=== PATIENT | male | born 1930 | race Two or more races ===

== ENCOUNTER 2016-04-10 21:07 | Emergency (ER) | payer MEDICARE, OTHER ==
[~2016-04-10] VITALS: Ht 170.2 cm; Wt 74.8 kg
[2016-04-10] MEDS ORDERED: ASPI-991 PO (21:23)
[2016-04-10] MEDS ORDERED: TOPI50TA PO (21:23)
[2016-04-10] MEDS ORDERED: VIT1TABL46 PO (21:23)
[2016-04-10] MEDS ORDERED: SOLI10TA PO (21:23)
[2016-04-10] MEDS ORDERED: DOCU-25 PO (21:23)
[2016-04-10] MEDS ORDERED: DUTA0.5C PO (21:23)
[2016-04-10] MEDS ORDERED: CLOP75TA2 PO (21:23)
[2016-04-10] MEDS ORDERED: SIMV40TA2 PO (21:23)
[2016-04-10] MEDS ORDERED: CRAN3875 PO (21:23)
[2016-04-10] MEDS ORDERED: PANT40TA2 PO (21:23)
[2016-04-10] MEDS ORDERED: FURO-144 PO (21:23)
[2016-04-10] MEDS ORDERED: CARV3.12 PO (21:23)
[2016-04-10 22:49] LABS: BASOPHILS % (AUTO) 0.2 % (0.0-2.0); DIFF TOTAL % 100 %; EOSINOPHILS # (AUTO) 0.2 /CMM (0.0-0.7); EOSINOPHILS % (AUTO) 1.8 % (0.0-6.0); HEMATOCRIT 31 % (39-51); HEMOGLOBIN 9.5 g/dL (13.5-17.5); LYMPHOCYTES # (AUTO) 2.1 /CMM (0.8-4.8); LYMPHOCYTES % (AUTO) 16.9 % (20.0-44.0); MEAN CORPUSCULAR HEMOGLOBIN 27 PG (26.0-33.0); MEAN CORPUSCULAR HGB CONC 31 g/dl (31.0-36.0); MEAN CORPUSCULAR VOLUME 87 fL (80-96); MONOCYTES % (AUTO) 7.8 % (2.0-12.0); NEUTROPHILS % (AUTO) 73.3 % (43.0-81.0); PLATELET COUNT (AUTO) 180 /CMM (150-450); RED BLOOD CELL COUNT(AUTO) 3.51 MIL/uL (4.5-6.0); WHITE BLOOD COUNT (AUTO) 12.3 K/uL (4.3-11.0)
[2016-04-10 23:31] LABS: EOSINOPHILS % (MANUAL) 1 % (0-4); LYMPHOCYTES % (MANUAL) 16 % (16-48); PLATELET ESTIMATE ADEQUATE
[2016-04-11 01:48] VITALS: BP 142/73
== END 2016-04-11 00:45 | disposition home or self-care (01) ==
LOC: ER 21:09
DX: Z49.01 Encounter for fitting and adjustment of extracorporeal dialysis catheter (principal); G93.40 Encephalopathy, unspecified; E11.9 Type 2 diabetes mellitus without complications; I25.10 Atherosclerotic heart disease of native coronary artery without angina pectoris; I12.9 Hypertensive chronic kidney disease with stage 1 through stage 4 chronic kidney disease, or unspecified chronic kidney disease; E78.5 Hyperlipidemia, unspecified; Z86.73 Personal history of transient ischemic attack (TIA), and cerebral infarction without residual deficits; Z79.82 Long term (current) use of aspirin
CPT/HCPCS: 36415; 71010; 85025; 99285; A4606; Z7610

== ENCOUNTER 2016-06-20 12:21 | Inpatient (IN) | payer MEDICARE, OTHER ==
[~2016-06-20] VITALS: Ht 167.6 cm; Wt 60.3 kg
[~2016-06-20 12:21] MED LIST: ASPI-991 PO; CARV3.12 PO; CLOP75TA2 PO; CRAN3875 PO; DOCU-25 PO; DUTA0.5C PO; FURO-144 PO; PANT40TA2 PO; SIMV40TA2 PO; SOLI10TA PO; TOPI50TA PO; VIT1TABL46 PO
--- NOTE | 2016-06-20 12:22 | NUR ---
BIBRA 102 FROM [facility] FOR MORE ALTERED THAN USUAL, LAST KNOWN WELL WAS YESTERDAY. PATIENT RECEIVED IN MILD DISTRESS, SATING 85-93% ON ROOM AIR. PATIENT IS RESPONSE TO PAIN. SKIN IS WARM TO TOUCH AND NON DIAPHORETIC. NOTED AFEBRILE. GOWNED AND PLACED PT ON TELE MONITOR. RAY AT BEDSIDE FOR EVAL, IV INSERTED BY ON RIGHT EJ.
--- NOTE | 2016-06-20 12:23 | NUR ---
PLACED PT ON SIMPLE MASK AT 5LPM WITH NOTED HELP
--- NOTE | 2016-06-20 12:52 | NUR ---
patient was taken to ct
[2016-06-20 12:53] LABS: BASOPHILS % (AUTO) 0.4 % (0.0-2.0); EOSINOPHILS # (AUTO) 0.3 /CMM (0.0-0.7); EOSINOPHILS % (AUTO) 2.5 % (0.0-6.0); HEMATOCRIT 32 % (39-51); HEMOGLOBIN 10.3 g/dL (13.5-17.5); LYMPHOCYTES # (AUTO) 1.5 /CMM (0.8-4.8); LYMPHOCYTES % (AUTO) 13.1 % (20.0-44.0); MEAN CORPUSCULAR HEMOGLOBIN 29 PG (26.0-33.0); MEAN CORPUSCULAR HGB CONC 32 g/dl (31.0-36.0); MEAN CORPUSCULAR VOLUME 90 fL (80-96); MONOCYTES # (AUTO) 0.7 /CMM (0.1-1.30); MONOCYTES % (AUTO) 6.2 % (2.0-12.0); NEUTROPHILS # (AUTO) 8.7 /CMM (1.8-8.9); NEUTROPHILS % (AUTO) 77.8 % (43.0-81.0); PLATELET COUNT (AUTO) 181 /CMM (150-450); RDW COEFFICIENT OF VARIATION 17.4 (11.5-15.0); RED BLOOD CELL COUNT(AUTO) 3.56 MIL/uL (4.5-6.0); WHITE BLOOD COUNT (AUTO) 11.2 K/uL (4.3-11.0)
--- NOTE | 2016-06-20 12:58 | NUR ---
CALLED PHARMACY FOR LYNN
--- NOTE | 2016-06-20 12:59 | NUR ---
PT STILL ON CT
[2016-06-20] MEDS ORDERED: VANCOMYCIN 1 GM in IV D5W 250 ML IV ONE (13:00)
[2016-06-20] MEDS ORDERED: PIPERACILLIN /TAZOBACTAM 3.375 G in IV D5W 50 ML IV ONE (13:00)
[2016-06-20 13:02] LABS: CALCIUM, SERUM 8.1 mg/dL (8.5-10.1); CREATININE 2.1 mg/dL (0.6-1.3); POTASSIUM 4.7 mmol/L (3.5-5.1)
[2016-06-20 13:05] LABS: INR 1.22 (0.87-1.13); PROTHROMBIN TIME 12.8 SECS (9.5-12.7)
[2016-06-20] MEDS ORDERED: IV SET PRIMARY PUMP SET 1 EA INFUS.SET MC ONE (13:05)
[2016-06-20 13:08] LABS: ALBUMIN 2.7 g/dL (3.4-5.0); BILIRUBIN,DIRECT 0.4 mg/dL (0.0-0.2); BILIRUBIN,TOTAL 0.7 mg/dL (0.2-1.0); TOTAL PROTEIN, SERUM 6.3 g/dL (6.4-8.2)
[2016-06-20 13:11] LABS: TROPONIN I 0.251 ng/mL (0.00-0.056)
[2016-06-20 13:51] LABS: LACTIC ACID 0.8 mmol/L (0.4-2.0)
--- NOTE | 2016-06-20 13:56 | NUR ---
CALLED NURSING CAR LOT ATTENDANT BEAU FOR TELEMETRY BED
--- NOTE | 2016-06-20 14:06 | NUR ---
REPORT GIVEN TO CARIN SPAULDING FOR [facility] TELE [phone]
[2016-06-20] MEDS ORDERED: BISA-79 PO (14:19)
[2016-06-20] MEDS ORDERED: MEGE400O PO (14:19)
[2016-06-20] MEDS ORDERED: LACT1TAB20 PO (14:19)
[2016-06-20] MEDS ORDERED: MULT1TAB11 PO (14:19)
[2016-06-20] MEDS ORDERED: ZINC220T PO (14:19)
[2016-06-20] MEDS ORDERED: CRAN425C PO (14:19)
[2016-06-20] MEDS ORDERED: ACET-868 PO (14:19)
[2016-06-20] MEDS ORDERED: AMIN30LI2 PO (14:19)
[2016-06-20 14:45] VITALS: BP 119/64
--- NOTE | 2016-06-20 14:58 | NUR ---
SWITCHMAN OPENING RECEIVED PATIENT NON VERBAL WILL NOT OPEN EYES TO PAINFUL STIMULI. VS STABLE. ROOM AIR 88% PLACED PATIENT ON 2LPM NASAL CANNULA AND NOW SATTING 94%. FAMILY AT BEDSIDE. MD AWARE OF ADMISSION. PATIENT TELE APPLIED. PATIENT CAME UP WITH BILATERAL RESTRAINTS. REMOVED AND PATIENT GOES DIRECTLY TO PULL AT IV LINES AND NASAL CANNULA; WILL CALL MD TO ASK FOR SITTER ORDER. URINE SAMPLE IS NEEDED OK FROM MD SPAULDING TO STRAIGHT CATH PATIENT. RAILS UPX3 FOR SAFETY BED ALARM ON AND BED LOWERED AND LOCKED. NOTIFIED PATIENT NO FLUIDS FOR PATIENT HE CAN ASPIRATE
--- NOTE | 2016-06-20 15:00 | NUR ---
CAKE KNOCKER NOTES EDUCATED PATIENT FAMILY MEMBERS ON ASPIRATION PRECAUTIONS THEY CONTINUOUSLY STATE THAT PATIENT WANTS WATER. STATE UNDERSTANDING BUT CONTINUE TO ASK
[2016-06-20 16:00] VITALS: BP 113/46
--- NOTE | 2016-06-20 16:17 | NUR ---
LEARNING SUPPORT SERVICES DIRECTOR NOTES PATIENT FAMILY REFUSING AMMONIA LEVEL TO BE DRAWN OR ABG TO BE DRAWN. NOTIFIED MD YBARRA
[2016-06-20] MEDS ORDERED: ACETAMINOPHEN 325 MG TABLET PO PRN (16:30)
[2016-06-20] MEDS ORDERED: ONDANSETRON HCL/PF 4 MG/2 ML VIAL IVP PRN (16:30)
[2016-06-20] MEDS: MEGESTROL ACETATE SUSP 400 MG/10 ML UDC PO SCH (17:00)
[2016-06-20] MEDS: SIMVASTATIN 40 MG TABLET PO SCH (17:00)
[2016-06-20] MEDS: CARVEDILOL 3.125 MG TABLET PO SCH (17:00)
[2016-06-20] MEDS: OXYBUTYNIN CHLORIDE 5 MG TABLET PO SCH (17:00)
[2016-06-20 17:13] LABS: ABG BASE EXCESS 0.3 mmol/L; ABG OXYGEN SATURATION 96.2 % (92.0-98.5); ABG PCO2 37.1 mmHg (35.0-45.0); ABG PH 7.434 (7.350-7.450); ABG PO2 87.2 mmHg (75.0-100.0); ABG TOTAL HEMOGLOBIN 11.1 G/dL (13.5-18.0); AaDO2 97.6 mmHg; COHb 1.5 % (0.5-1.5); MetHb 0.5 % (0.0-1.5); O2Hb 94.3 % (94.0-97.0); SITE, ABG Right Radial; VENT MODE, BG NASAL CANNULA
--- NOTE | 2016-06-20 17:17 | NUR ---
COSTUME MISTRESS NOTES PER TATE SPAULDING KEEP PATIENT NPO AND HOLD PO MEDICATIONS UNTIL HE IS ALERT AND ABLE TO SAFELY SWALLOW. HD RN BILL AT BEDSIDE FOR DIALYSIS PER DR WESTBROOK
[2016-06-20] MEDS: CHLORHEXIDINE GLUCONATE 15 ML UDC MM SCH (18:13)
--- NOTE | 2016-06-20 18:42 | NUR ---
PLASTERING SUPERVISOR CLOSING PATIENT STABLE NO COMPLICATIONS. STABLE ON 2LPM NC 92-95%. PATIENT FAMILY MEMBER AT BEDSIDE. PATIENT MORE ALERT ASKING FOR WATER AND OPENING EYES. PATIENT BED BATH COMPLETED AND SAT UP FOR ASPIRATION. CURRENTLY RUNNING HD VS STABLE. SITTER AT SIDE NO COMPLICATIONS. FAMILY RE EDUCATED ON ASPIRATION PRECAUTIONS AND NPO STATUS AGAIN. RAILS UPX3 FOR SAFETY, BED ALARM ON, BED LOWERED AND LOCKED. WILL ENDORSE CARE TO RN AT THIS TIME.
--- NOTE | 2016-06-20 19:25 | NUR ---
TELE/RN NOTES RECEIVED PT. LYING IN BED RESTING. PT. IS RESPONSIVE TO VERBAL AND TACTILE STIMULI. BREATHING EVEN AND UNLABORED ON 2LPM O2 VIA NC. NO SOB, RESPIRATORY DISTRESS OR S/S OF PAIN NOTED AT THIS TIME. PT. WITH RIGHT CHEST WALL PORTACATH PRESENT AND INTACT. PT. WITH RIGHT EJ 20 GAUGE SALINE LOCK PRESENT, PATENT AND INTACT. PT. IS CURRENTLY RECEIVING DIALYSIS AT BEDSIDE. PT. WITH FAMILY PRESENT AT BEDSIDE. BED IN LOWEST POSITION, CALL LIGHT WITHIN REACH, WILL CONTINUE TO MONITOR.
--- NOTE | 2016-06-20 21:30 | NUR ---
TELE/RN NOTES NOTIFIED MD GONZALEZ PT. AMMONIA LEVEL RESULTED = 48. PER MD GONZALEZ NEW ORDERS: LACTULOSE 30ML PO Q6HR, REPEAT AMMONIA LEVEL IN THE MORNING AND LIVER ULTRASOUND. WILL CARRY OUT ORDERS. WILL CONTINUE TO MONITOR.
--- NOTE | 2016-06-20 22:30 | NUR ---
MS/RN NOTES PT. IS MORE ALERT OPENING EYES AND TALKING. CHARGE NURSE IQRA IS CONVERSING IN [facility] WITH THE PT. AND PT. IS UNDERSTANDING AND COMMUNICATING. PT. REQUESTING WATER. TWO RN'S ASSESSED PT. ABILITY TO SWALLOW. PT. ABLE TO TOLERATE WATER WITH THICKENER. NO COUGHING OR PROBLEM SWALLOWING NOTED. WILL CONTINUE TO MONITOR.
[2016-06-20 23:17] LABS: APPEARANCE,URINE SL CLOUDY (CLEAR); BILIRUBIN,URINE NEGATIVE (NEGATIVE); BLOOD, URINE 2+ Ery/uL (NEGATIVE); COLOR,URINE YELLOW (YELLOW); KETONES,URINE NEGATIVE (NEGATIVE); LEUKOCYTE ESTERASE ,URINE TRACE (NEGATIVE); NITRITE, URINE NEGATIVE (NEGATIVE); PROTEIN,URINE TRACE mg/dl (NEGATIVE); UGLUCOSE NEGATIVE (NEGATIVE); UROBILINOGEN,URINE 0.2 EU/dL (0.2)
[2016-06-20] MEDS ORDERED: LACTULOSE 10 G/15 ML UDC (PYXIS) ONE (23:21)
[2016-06-20] MEDS: LACTULOSE 10 G/15 ML UDC (PYXIS) PO SCH (23:28)
--- NOTE | 2016-06-20 23:30 | NUR ---
TELE/RN NOTES PT. SITTING UP IN IN HIGH FOWLERS, PT. AWAKE, ALERT TO SELF, CONVERSING IN FARSI. ADMINISTERED TO PT. LACTULOSE 30ML PO ORDERED. ADDED THICKENER TO THE LACTULOSE. PT. TOLERATED MEDICATION WELL. NO COUGHING OR TROUBLE SWALLOWING NOTED. WILL CONTINUE TO MONITOR.
[2016-06-20 23:34] LABS: ADD URINE CULTURE NO; BACTERIA,URINE Rare /HPF (None Seen); SQUAMOUS EPITHELIAL CELL,UR Rare /HPF (None Seen); URINE AMORPHOUS URATE Moderate /HPF (None Seen); WBC,URINE 0-2 /HPF (0-3)
--- NOTE | 2016-06-20 23:58 | NUR ---
TELE/RN NOTES INFORMED MD GONZALEZ PT. 3RD TROPONIN RESULTED AT 0.215, IT IS DECREASED COMPARED TO INITIAL TROPONIN OF 0.251 (2ND = 0.202) PT. IS CURRENTLY SINUS RHYTHM HR 83. NO COMPLAINTS OF CHEST PAIN OR SOB NOTED AT THIS TIME. PER MD GONZALEZ OK, NO NEW ORDERS AT THIS TIME. WILL CONTINUE TO MONITOR.
[2016-06-21] VITALS: BP 120/49
[2016-06-21 04:00] VITALS: BP 130/60
[2016-06-21] MEDS ORDERED: LACTULOSE 10 G/15 ML UDC (PYXIS) ONE (05:18)
[2016-06-21] MEDS: LACTULOSE 10 G/15 ML UDC (PYXIS) PO SCH ×3 (05:51→17:31)
--- NOTE | 2016-06-21 06:32 | NUR ---
TELE/RN NOTES PT. LYING IN BED RESTING. BREATHING EVEN AND UNLABORED ON 2LPM O2 VIA NC. NO SOB, RESPIRATORY DISTRESS OR S/S OF PAIN NOTED AT THIS TIME AND THROUGHOUT SHIFT. PT. WITH RIGHT CHEST WALL PORTACATH PRESENT AND INTACT. PT. WITH RIGHT WRIST 24 GAUGE IV SALINE LOCK, PRESENT, PATENT AND INTACT. PT. WITH SITTER PRESENT AT BEDSIDE. ALL PT. NEEDS MET. PT. OFFLOADED. TURNED AND REPOSITIONED Q2H AND NEEDED. BED IN LOWEST POSITION, CALL LIGHT WITHIN REACH, WILL ENDORSE TO [facility] NURSE FOR CONTINUITY OF CARE. Addendum: 06/21/16 at 0634 by JORGE GUEVARA RN PT. WITH EXTERNAL MATERIAL CONTROL MANAGER PRESENT AND INTACT, CURRENT RHYTHM = SINUS RHYTHM HR 82.
[2016-06-21 07:20] VITALS: BP 113/46
--- NOTE | 2016-06-21 07:30 | NUR ---
AM RN NOTE Received patient awake lying in his bed. Verbally responsive. On O2 2L/min via NC. On tele monitor. 1:1 sitter at pt's side. IV site intact and patent. Bed in low locked position. Will continue to monitor.
[2016-06-21 08:00] VITALS: BP 116/53
[2016-06-21] MEDS: CHLORHEXIDINE GLUCONATE 15 ML UDC MM SCH ×2 (08:07→17:31)
[2016-06-21] MEDS: DUTASTERIDE (0.5 MG) 0.5 MG CAPSULE PO SCH (08:07)
[2016-06-21] MEDS: ASPIRIN EC 81 MG TABLET.DR PO SCH (08:07)
[2016-06-21] MEDS: CLOPIDOGREL BISULFATE 75 MG TABLET PO SCH (08:08)
[2016-06-21] MEDS: OXYBUTYNIN CHLORIDE 5 MG TABLET PO SCH ×2 (08:08→17:28)
[2016-06-21] MEDS: CARVEDILOL 3.125 MG TABLET PO SCH ×2 (08:08→17:29)
[2016-06-21] MEDS: MEGESTROL ACETATE SUSP 400 MG/10 ML UDC PO SCH ×2 (08:08→17:31)
[2016-06-21] MEDS: TOPIRAMATE 25 MG TABLET PO SCH (08:09)
[2016-06-21] MEDS: SIMVASTATIN 40 MG TABLET PO SCH ×2 (08:09→17:28)
--- NOTE | 2016-06-21 08:32 | NUR ---
WOUND CARE CONSULT: PT REFUSED SKIN ASSESSMENT. PT AGITATED AT THIS TIME. WILL SEE PT PT CONDITION PERMITS.
[2016-06-21 10:57] LABS: EOSINOPHILS # (AUTO) 0.1 /CMM (0.0-0.7); HEMATOCRIT 36 % (39-51); MONOCYTES # (AUTO) 0.6 /CMM (0.1-1.30)
[2016-06-21 10:58] LABS: BASOPHILS # (AUTO) 0.1 /CMM (0.0-0.2); BASOPHILS % (AUTO) 0.5 % (0.0-2.0); EOSINOPHILS % (AUTO) 1.1 % (0.0-6.0); HEMOGLOBIN 11.1 g/dL (13.5-17.5); LYMPHOCYTES # (AUTO) 1.1 /CMM (0.8-4.8); LYMPHOCYTES % (AUTO) 11.5 % (20.0-44.0); MEAN CORPUSCULAR HEMOGLOBIN 28 PG (26.0-33.0); MEAN CORPUSCULAR HGB CONC 31 g/dl (31.0-36.0); MEAN CORPUSCULAR VOLUME 91 fL (80-96); MONOCYTES % (AUTO) 6.5 % (2.0-12.0); NEUTROPHILS # (AUTO) 7.6 /CMM (1.8-8.9); NEUTROPHILS % (AUTO) 80.4 % (43.0-81.0); PLATELET COUNT (AUTO) 176 /CMM (150-450); RDW COEFFICIENT OF VARIATION 18.3 (11.5-15.0); RED BLOOD CELL COUNT(AUTO) 3.98 MIL/uL (4.5-6.0); WHITE BLOOD COUNT (AUTO) 9.5 K/uL (4.3-11.0)
--- NOTE | 2016-06-21 12:21 | NUR ---
AM RN NOTE Lactulose held due to dialysis
[2016-06-21 13:42] LABS: ALANINE AMINOTRANSFERASE 16 U/L (12-78); ALBUMIN 2.7 g/dL (3.4-5.0); ALKALINE PHOSPHATASE 102 U/L (46-116); ASPARTATE AMINOTRANSFERASE 14 U/L (15-37); BILIRUBIN,TOTAL 0.8 mg/dL (0.2-1.0); CALCIUM, SERUM 8.1 mg/dL (8.5-10.1); CARBON DIOXIDE 28 mmol/L (21-32); CHLORIDE 110 mmol/L (98-107); CREATININE 1.6 mg/dL (0.6-1.3); GLUCOSE 168 mg/dL (74-106); MAGNESIUM 2.2 mg/dL (1.8-2.4); PHOSPHORUS 3.4 mg/dL (2.5-4.9); POTASSIUM 4.1 mmol/L (3.5-5.1); SODIUM SERUM 148 mmol/L (136-145); TOTAL PROTEIN, SERUM 6.4 g/dL (6.4-8.2); UREA NITROGEN, BLOOD 37 mg/dL (7-18)
[2016-06-21 13:46] LABS: CHOLESTEROL 114 mg/dL (<200); HDL CHOLESTEROL 26 mg/dL (40-60); LDL 75 mg/dL (0-99); TRIGLYCERIDES 77 mg/dL (30-150)
[2016-06-21 14:12] LABS: THYROID STIMULATING HORMONE < 0.007 uIU/mL (0.358-3.74)
[2016-06-21 16:00] VITALS: BP 116/55
--- NOTE | 2016-06-21 16:00 | NUR ---
AM RN NOTE Dialysis output 1.8 L.
--- NOTE | 2016-06-21 16:00 | NUR ---
AM RN NOTE Ammonia lab results notified to Dr. Edgar Santos, continue lactulose as ordered per MD.
--- NOTE | 2016-06-21 19:04 | NUR ---
AM RN NOTE Patient lying in his bed, family at bedside. No acute distress noted. IV site intact and patent. Will endorse to next shift for JAYSON.
--- NOTE | 2016-06-21 19:49 | NUR ---
AVIATION TECHNICAL SYSTEMS SPECIALIST INITIAL NOTES RECEIVED REPORT FROM AM NURSE , CHECKED PT ,HE'S SLEEPING AT THIS TIME BUT AROUSABLE TO TOUCH, RESPIRATION EVEN AND UN-LABORED , NOT IN ANY ACUTE DISTRESS NOTED. SKIN WARM TO TOUCH NOTICED SOME BRUISES , HEPLOCK ON HIS RIGHT WRIST PATENT AND INTACT SECURED WITH KERLIX..PT ALSO WITH 02 AT 3LITERS VIA NASAL CANULA 100 % SATURATION .KEPT HIM WARM AND COMFORTABLE AT ALL TIMES. WILL CONTINUE CLOSELY MONITORING FOR SAFETY.
[2016-06-21 19:57] VITALS: BP 104/56
[2016-06-22] MEDS: LACTULOSE 10 G/15 ML UDC (PYXIS) PO SCH ×5 (00:06→18:48)
[2016-06-22] MEDS: Z GUARD REMEDY 2 OZ OINT TP PRN ×2 (00:06→06:04)
--- NOTE | 2016-06-22 00:59 | NUR ---
clinical trainer notes routine med given and pt tolerated well. no aspiration noted.reposition him for comfort. kept him warm and comfortable at all times.will continue to monitor.
--- NOTE | 2016-06-22 02:54 | NUR ---
rate quoting operator/notes patient woke up noticed more alert and asking for drink ,gave ensure and he tolerated well,no aspiration noted.kept him comfortable at all times. will continue to monitor.
--- NOTE | 2016-06-22 07:00 | NUR ---
LUNCH TRUCK DRIVER CLOSING NOTES MORNING CARE DONE WELL SKIN TREATMENT. PT AWAKE AND CONFUSION NOTED.RE-ORIENT HIM WHERE HE AT . ALL DUE MEDS GIVEN AND ALL NEEDS MET .NO SIGNS OF ANY ACUTE DISTRESS NOTED.STABLE RASHAAD THE NIGHT.KEPT HIM WARM AND COMFORTABLE AT ALL TIMES.PLACE CALL LIGHT AT REACH.SITTER AT THE BEDSIDE FOR SAFETY.
[2016-06-22 07:35] LABS: BASOPHILS % (AUTO) 0.4 % (0.0-2.0); EOSINOPHILS # (AUTO) 0.4 /CMM (0.0-0.7); HEMATOCRIT 36 % (39-51); HEMOGLOBIN 10.9 g/dL (13.5-17.5); LYMPHOCYTES # (AUTO) 1.1 /CMM (0.8-4.8); LYMPHOCYTES % (AUTO) 9.5 % (20.0-44.0); MEAN CORPUSCULAR HEMOGLOBIN 28 PG (26.0-33.0); MEAN CORPUSCULAR HGB CONC 31 g/dl (31.0-36.0); MEAN CORPUSCULAR VOLUME 92 fL (80-96); MONOCYTES # (AUTO) 0.7 /CMM (0.1-1.30); MONOCYTES % (AUTO) 6.4 % (2.0-12.0); NEUTROPHILS # (AUTO) 8.9 /CMM (1.8-8.9); NEUTROPHILS % (AUTO) 79.7 % (43.0-81.0); PLATELET COUNT (AUTO) 175 /CMM (150-450); RDW COEFFICIENT OF VARIATION 18.8 (11.5-15.0); RED BLOOD CELL COUNT(AUTO) 3.87 MIL/uL (4.5-6.0); WHITE BLOOD COUNT (AUTO) 11.1 K/uL (4.3-11.0)
[2016-06-22 07:41] VITALS: BP 110/53
[2016-06-22 08:00] VITALS: BP 110/53
--- NOTE | 2016-06-22 08:07 | NUR ---
MS/RN OPENING NOTE PT. IS WITH A 1:1 SITTER NEAR BEDSIDE. PT. IS LYING IN BED A&OX1-2. NO SOB, NO SIGNS OF DISTRESS, AND BREATHING IS UNLABORED. PT. HAS A RIGHT WRIST IV SITE. PT. HAD DIALYSIS 06/21/16. BED IN LOW POSITION, 2 SIDE RAILS UP, AND CALL LIGHT WITHIN REACH. WILL CONTINUE TO MONITOR PT.
[2016-06-22 08:16] LABS: ALBUMIN 2.6 g/dL (3.4-5.0); BILIRUBIN,TOTAL 0.7 mg/dL (0.2-1.0); CALCIUM, SERUM 8.1 mg/dL (8.5-10.1); CREATININE 1.9 mg/dL (0.6-1.3); MAGNESIUM 2.2 mg/dL (1.8-2.4); PHOSPHORUS 2.9 mg/dL (2.5-4.9); POTASSIUM 4.2 mmol/L (3.5-5.1); TOTAL PROTEIN, SERUM 6.6 g/dL (6.4-8.2)
[2016-06-22] MEDS: OXYBUTYNIN CHLORIDE 5 MG TABLET PO SCH ×3 (09:35→18:47)
[2016-06-22] MEDS: DUTASTERIDE (0.5 MG) 0.5 MG CAPSULE PO SCH (09:35)
[2016-06-22] MEDS: CHLORHEXIDINE GLUCONATE 15 ML UDC MM SCH ×3 (09:35→18:48)
[2016-06-22] MEDS: ASPIRIN EC 81 MG TABLET.DR PO SCH (09:36)
[2016-06-22] MEDS: SIMVASTATIN 40 MG TABLET PO SCH ×3 (09:36→18:46)
[2016-06-22] MEDS: CARVEDILOL 3.125 MG TABLET PO SCH ×3 (09:36→18:47)
[2016-06-22] MEDS: TOPIRAMATE 25 MG TABLET PO SCH (09:36)
[2016-06-22] MEDS: CLOPIDOGREL BISULFATE 75 MG TABLET PO SCH (09:37)
--- NOTE | 2016-06-22 09:46 | NUR ---
WOUND CARE CONSULT: PT PRESENTS WITH POSTERIOR SCALP WOUND, PRESENT ON ADMISSION. PT IS INCONTINENT. PT ABLE TO ASSIST WITH TURNING AND REPOSITIONING IN BED BUT IS AGITATED AT TIMES. PT ON COMFORT GEL MATTRESS. SAIMA SCORE IS 13. ALL SKIN PROTECTION MEASURES DISCUSSED WITH NURSING STAFF. MD IN AGREEMENT WITH PLAN OF CARE. Addendum: 06/22/16 at 0949 by LILLIE ZHONG WNDNU Amended: Links added.
[2016-06-22] MEDS: MEGESTROL ACETATE SUSP 400 MG/10 ML UDC PO SCH ×2 (10:49→18:38)
[2016-06-22] MEDS: NEOMY SULF/BACITRAC ZN/POLY 15 GM TUBE TP SCH ×2 (14:44→18:41)
[2016-06-22 15:51] VITALS: BP 109/45
[2016-06-22 16:00] VITALS: BP 125/66
--- NOTE | 2016-06-22 18:00 | NUR ---
MS/RN REFUSED MEDICATIONS PT. REFUSED 1700 MEDICATIONS, INCLUDING COREG, MEGACE, ZOCOR, LACTULOSE, LACTULOSE, MOUTH WASH, AND DITROPAN. PT. WAS GIVEN REASON FOR TAKING MEDICATIONS AND ENCOURAGED TO TAKE WITH PUREED APPLESAUCE.
--- NOTE | 2016-06-22 19:05 | NUR ---
MS RN NOTES: RECEIVED PT IN BED A/O X1-2 (FARSI SPEAKING ONLY) WITH FAMILY AT BEDSIDE. NO SIGNS OR SYMPTOMS OF DISTRESS NOTED AT THIS TIME. EXPLAINED TO FAMILY THAT HE IS TO GO FOR A PROCEDURE TOMORROW: US GUIDED BIOPSY THYROID. HANDED A PRINTOUT TO FAMILY ABOUT PROCEDURE BUT BOTH SON AND REFUSED TO SIGN THE CONSENT. PT HAS A SITTER AT BEDSIDE WELL. KEPT CLEAN, DRY, AND COMFORTABLE. PT HAS A R CHEST WALL-HD CATH AND IS IN PLACE WITH IV GUARD. PT ALSO HAS IV ON R WRIST #24 AND IS PATENT AND INTACT. PT IS ALSO SCHEDULED FOR HD TOMORROW. BED KEPT IN LOCKED, LOWEST POSITION, AND SIDE RAILS X2 UP. WILL CONTINUE TO MONITOR PT.
--- NOTE | 2016-06-22 19:30 | NUR ---
MS/RN CLOSING NOTE 1:1 SITTER NEAR BEDSIDE. PT. IS IN BED, WITH HEAD OF BED ELEVATED, AWAKE, A&OX1-2 FARSI SPEAKING. NO S/S OF DISTRESS, NO SOB, BREATHING EVENLY, UNLABORED WITHOUT NASAL CANULA SPO2 96%. PT. IS IN STABLE CONDITION. PT. IS SCHEDULED FOR HEMODIALYSIS 06/23/16, AND ULTRASOUND GUIDED BIOPSY OF THE THYROID, PT.'S FAMILY WAS NOTIFIED OF THE PROCEDURE. NO IV FLUIDS INFUSING IN RIGHT WRIST IV ACCESS. BED IS IN LOW POSITION, 2 SIDE RAILS UP, ALL NEEDS ATTENDED TO, AND WILL ENDORSE REPORT TO EARLY CHILDHOOD DIRECTOR NURSE.
[2016-06-22 20:00] VITALS: BP 109/50
[2016-06-23] MEDS: HYDROGEL DRESSING 90 GM TUBE TP PRN ×2 (06:05→13:53)
[2016-06-23] MEDS: LACTULOSE 10 G/15 ML UDC (PYXIS) PO SCH ×4 (06:05→23:40)
[2016-06-23] MEDS: Z GUARD REMEDY 2 OZ OINT TP PRN ×2 (06:06→13:53)
--- NOTE | 2016-06-23 07:40 | NUR ---
RECEIVED PT. CONFUSED YELLS OUT FROM TIME TO TIME.IN ROOM WITH ONE TO ONE SITTER.VS STABLE.AT THIS TIME FAMILY REFUSING US GUIDED BX OF THYROID.SIDE RAILS UP.
--- NOTE | 2016-06-23 07:53 | NUR ---
MS RN CLOSING NOTES: PT IS IN BED ASLEEP WITH SITTER AT BEDSIDE. PT IS A/O X1 WITH CONFUSION AND ONLY FARSI SPEAKING. PT IS INCONTINENT WITH DIAPER. PT DID HAVE SOME URINE ON THE PAD WHEN PT WAS GIVEN SPONGE BATH. PT HAD LITTLE BOWEL MOVEMENT X1. PT KEPT CLEAN, DRY, AND COMFORTABLE. PT HAS IV ON R WRIST #24G HL, SULLY FISTULA, AND RCW HD CATH. PT IS SCHEDULED FOR DIALYSIS TODAY. BED KEPT IN LOCKED, LOWEST POSITION, AND SIDE RAILS X2 UP. MAXIM LIGHT WITHIN PT'S REACH. ENDORSED TO DAY SHIFT NURSE FOR CONTINUITY OF CARE. INFORMED DAY SHIFT NURSE THAT SON (BROOKE) AND REFUSED TO SIGN THE CONSENT FOR US NEEDLE GUIDED BIOPSY THYROID PROCEDURE SCHEDULED TODAY.
[2016-06-23 08:34] VITALS: BP 104/53
[2016-06-23] MEDS ORDERED: CARVEDILOL 3.125 MG TABLET PO SCH (09:00)
[2016-06-23 09:12] LABS: BASOPHILS % (AUTO) 0.2 % (0.0-2.0); EOSINOPHILS # (AUTO) 0.4 /CMM (0.0-0.7); EOSINOPHILS % (AUTO) 3.9 % (0.0-6.0); HEMATOCRIT 34 % (39-51); HEMOGLOBIN 10.7 g/dL (13.5-17.5); LYMPHOCYTES # (AUTO) 1.5 /CMM (0.8-4.8); LYMPHOCYTES % (AUTO) 13.4 % (20.0-44.0); MEAN CORPUSCULAR HEMOGLOBIN 29 PG (26.0-33.0); MEAN CORPUSCULAR HGB CONC 32 g/dl (31.0-36.0); MEAN CORPUSCULAR VOLUME 90 fL (80-96); MONOCYTES # (AUTO) 0.6 /CMM (0.1-1.30); MONOCYTES % (AUTO) 5.5 % (2.0-12.0); NEUTROPHILS # (AUTO) 8.5 /CMM (1.8-8.9); PLATELET COUNT (AUTO) 171 /CMM (150-450); RDW COEFFICIENT OF VARIATION 17.9 (11.5-15.0); RED BLOOD CELL COUNT(AUTO) 3.76 MIL/uL (4.5-6.0); WHITE BLOOD COUNT (AUTO) 11.1 K/uL (4.3-11.0)
[2016-06-23 09:34] LABS: CALCIUM, SERUM 8.1 mg/dL (8.5-10.1); CREATININE 2.2 mg/dL (0.6-1.3); MAGNESIUM 2.3 mg/dL (1.8-2.4); PHOSPHORUS 2.9 mg/dL (2.5-4.9); POTASSIUM 4.7 mmol/L (3.5-5.1)
[2016-06-23] MEDS: CHLORHEXIDINE GLUCONATE 15 ML UDC MM SCH ×2 (09:49→18:20)
[2016-06-23] MEDS: MEGESTROL ACETATE SUSP 400 MG/10 ML UDC PO SCH ×2 (09:50→18:20)
[2016-06-23] MEDS: DUTASTERIDE (0.5 MG) 0.5 MG CAPSULE PO SCH (09:50)
[2016-06-23] MEDS: CLOPIDOGREL BISULFATE 75 MG TABLET PO SCH (09:50)
[2016-06-23] MEDS: OXYBUTYNIN CHLORIDE 5 MG TABLET PO SCH ×2 (09:50→18:20)
[2016-06-23] MEDS: ASPIRIN EC 81 MG TABLET.DR PO SCH (09:50)
[2016-06-23] MEDS: TOPIRAMATE 25 MG TABLET PO SCH (09:52)
[2016-06-23] MEDS: SIMVASTATIN 40 MG TABLET PO SCH ×2 (09:52→18:20)
[2016-06-23] MEDS: NEOMY SULF/BACITRAC ZN/POLY 15 GM TUBE TP SCH ×2 (10:00→18:19)
--- NOTE | 2016-06-23 10:30 | NUR ---
HD RN HERE.WD. CARE DONE.RELUCTANT TO TAKE MEDS,TOOK MEDS PARTIALLY.2 L REMOVED FRO DIALYSIS.
--- NOTE | 2016-06-23 10:40 | NUR ---
DTR. IN DR. WESTBROOK IN TO SEE PT.DTR. REQUESTING NEPRO DRINK FOR PT. Jeffrey COX.
[2016-06-23] MEDS ORDERED: RENAL NOVASOURCE (8OZ) 1 EA BOX PO PRN (12:30)
[2016-06-23] MEDS ORDERED: VITAMINS A AND D 56.7 GM TUBE TP PRN (12:30)
[2016-06-23 16:00] VITALS: BP 103/57
--- NOTE | 2016-06-23 16:51 | NUR ---
PT,S O2 SAT ON RM. AIR 87%.
[2016-06-23] MEDS: CARVEDILOL 3.125 MG TABLET PO SCH (17:00)
--- NOTE | 2016-06-23 17:30 | NUR ---
DTR. BACK IN TO VISIT.
--- NOTE | 2016-06-23 19:30 | NUR ---
ENDORSED PT. TO MARÍA. RN NOTED LATE DC ORDER.
[2016-06-23] MEDS ORDERED: CHLO15MO2 MM (19:44)
[2016-06-23 20:00] VITALS: BP 103/51
--- NOTE | 2016-06-23 20:22 | NUR ---
RN NOTES: SPOKE TO PATIENT'S , ABOUT THE NEW ORDER FROM MD. SPAULDING REGARDING THE PATIENT'S DISCHARGE. STATES THAT SHE SPOKE TO MD AND MEDICAL HISTORIAN THAT SHE WANTS THE DISCHARGE TO BE TOMORROW BECAUSE THERE IS NO BED AVAILABLE TOMORROW. CHARGE NURSE IS AWARE. WILL CONTINUE RO MONITOR AND FOLLOW UP.
[2016-06-23 22:00] VITALS: BP 103/51
[2016-06-24] MEDS: LACTULOSE 10 G/15 ML UDC (PYXIS) PO SCH ×4 (05:15→23:57)
--- NOTE | 2016-06-24 07:43 | NUR ---
RN OPEN NOTES RECEIVED REPORT FROM REPAIRER CYLINDER HEADS NURSE. WILL CONTINUE TO MONITOR AND ASSESS PATIENT THROUGHOUT MY SHIFT
[2016-06-24] MEDS: CARVEDILOL 3.125 MG TABLET PO SCH ×2 (09:00→16:30)
[2016-06-24] MEDS: MEGESTROL ACETATE SUSP 400 MG/10 ML UDC PO SCH ×2 (09:00→16:28)
[2016-06-24] MEDS: CLOPIDOGREL BISULFATE 75 MG TABLET PO SCH (09:23)
[2016-06-24] MEDS: ASPIRIN EC 81 MG TABLET.DR PO SCH (09:24)
[2016-06-24] MEDS: DUTASTERIDE (0.5 MG) 0.5 MG CAPSULE PO SCH (09:25)
[2016-06-24] MEDS: SIMVASTATIN 40 MG TABLET PO SCH ×2 (09:25→16:26)
[2016-06-24] MEDS: TOPIRAMATE 25 MG TABLET PO SCH (09:25)
[2016-06-24] MEDS: OXYBUTYNIN CHLORIDE 5 MG TABLET PO SCH ×2 (09:26→16:24)
[2016-06-24] MEDS: CHLORHEXIDINE GLUCONATE 15 ML UDC MM SCH ×2 (09:29→16:27)
[2016-06-24] MEDS: NEOMY SULF/BACITRAC ZN/POLY 15 GM TUBE TP SCH ×2 (09:29→16:29)
[2016-06-24] MEDS: VITAMINS A AND D 56.7 GM TUBE TP SCH (09:30)
--- NOTE | 2016-06-24 15:40 | NUR ---
DRESSING CHANGED PER HOSPITAL PROTOCOL AND WOUND CARE INSTRUCTION.
--- NOTE | 2016-06-24 16:00 | NUR ---
HOLD DC'S PATIENT HOSPITAL BED WAS NOT DELIVERED TO PATIENT'S HOME. FAMILY DOESN'T FEEL COMFORTABLE TO TAKE PATIENT HOME.
[2016-06-24 16:33] VITALS: BP 112/52
--- NOTE | 2016-06-24 19:09 | NUR ---
RN CLOSING NOTES PATIENT IS IN BED, AWAKE, ALERT AND ORIENTED X0. NO SIGNS AND SYMPTOMS OF DISTRESS. DENIED PAIN. BED IN LOW POSITION, LOCKED AND TWO SIDE RAILS ARE UP. POSSIBLE DISCHARGE TOMORROW AM, IF HOSPITAL BED WILL DELIVERED. WILL ENDORSE TO STERILE PREPARATION TECHNICIAN NURSE.
--- NOTE | 2016-06-24 19:40 | NUR ---
ms rn initial notes: received report from yury beck. pt in bed, awake, very confused, respond to tactile stimuli, respiration even and unlabored, appears calm and comfortable, sitter at bed side. pt has right wrist g24 iv access patent and flushing well, on hl, covered with kerlix as pt trying to pull out the line. pt has right cw hd catheter, with dressing c/d/i, s/p hd yesterday 06/23/16 with 2l out. 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 safety precautions for fall initiated call light in reach, will continue to monitor
[2016-06-24 20:00] VITALS: BP 105/46
--- NOTE | 2016-06-25 00:03 | NUR ---
MS RN NOTES: PT TOOK HIS MEDICATION, LACTULOSE, WITNESS BY DORY FOREMAN, NO S/S/ OF ASPIRATION NOTED, WILL CONTINUE TO MONITOR
[2016-06-25] MEDS: LACTULOSE 10 G/15 ML UDC (PYXIS) PO SCH ×3 (06:00→17:21)
--- NOTE | 2016-06-25 06:10 | NUR ---
MS RN NOTES: PT ON HD, ASKED TRAIN SYSTEM OPERATOR IF OKAY FOR THE PT TO TAKE LACTULOSE WHILE ON HD, TRAIN SYSTEM OPERATOR STATED TO GIVE IT LATER, BECAUSE PT ALREADY ON DIALYSIS
--- NOTE | 2016-06-25 06:44 | NUR ---
ms rn closing notes: pt on bed, awake, remains very confused, iv access remains patent and flushing well, on hl. sitter at bed side. ongoing hd at this time. pt calm and appears comfortable at this time. ble kept offloaded. vs remains stable, needs attended. for dc in am, exit care completed. safety precautions for fall remains engaged, call light in reach, will endorse to day rn for danial.
--- NOTE | 2016-06-25 06:45 | NUR ---
MS RN NOTES: PT REFUSED LACTULOSE, EDUCATION PROVIDED TO THE PT, ENDORSED TO DAY RN TENISHA
--- NOTE | 2016-06-25 07:24 | NUR ---
RN OPEN NOTES RECEIVED REPORT FROM SLIP CASTER NURSE. PATIENT IS IN BED, AWAKE AND ORIENTED X0. NO SIGNS AND SYMPTOMS OF DISTRESS. PATIENT IS CURRENTLY HAVING DIALYSIS. WILL CONTINUE TO MONITOR AND ASSESS PATIENT THROUGHOUT MY SHIFT.
[2016-06-25 08:00] VITALS: BP 105/34
[2016-06-25] MEDS ORDERED: ALBUMIN 25% 25 GM in PREMIX 1 EA IV ONE (08:00)
[2016-06-25] MEDS ORDERED: SECONDARY IV SET 1 EA INFUS.SET MC ONE (08:10)
[2016-06-25] MEDS: MEGESTROL ACETATE SUSP 400 MG/10 ML UDC PO SCH ×2 (09:00→17:00)
[2016-06-25] MEDS: CARVEDILOL 3.125 MG TABLET PO SCH ×2 (09:00→17:00)
[2016-06-25] MEDS: TOPIRAMATE 25 MG TABLET PO SCH (10:09)
[2016-06-25] MEDS: CHLORHEXIDINE GLUCONATE 15 ML UDC MM SCH ×2 (10:09→17:21)
[2016-06-25] MEDS: OXYBUTYNIN CHLORIDE 5 MG TABLET PO SCH ×2 (10:09→17:21)
[2016-06-25] MEDS: SIMVASTATIN 40 MG TABLET PO SCH ×2 (10:09→17:21)
[2016-06-25] MEDS: CLOPIDOGREL BISULFATE 75 MG TABLET PO SCH (10:10)
[2016-06-25] MEDS: DUTASTERIDE (0.5 MG) 0.5 MG CAPSULE PO SCH (10:10)
[2016-06-25] MEDS: ASPIRIN EC 81 MG TABLET.DR PO SCH (10:10)
[2016-06-25] MEDS: NEOMY SULF/BACITRAC ZN/POLY 15 GM TUBE TP SCH ×2 (10:12→17:22)
[2016-06-25] MEDS: VITAMINS A AND D 56.7 GM TUBE TP SCH (10:12)
--- NOTE | 2016-06-25 14:09 | NUR ---
RN NOTES SPOKE TO MEAGAN (THE SON) AT [phone]. BED WILL BE DELIVERED TODAY BETWEEN 4-6PM. CHARGE NURSE MADE AWARE
[2016-06-25 17:00] VITALS: BP 100/51
--- NOTE | 2016-06-25 19:28 | NUR ---
FACILITY EXAMINER NOTES PATIENT DISCHARGE ORDERS RECEIVED AND EXPLAINED TO FAMILY. PATIENT'S PERSONAL BELONGING WITH PATIENT AT TIME OF DISCHARGE. PATIENT IV SITE REMOVED. ID BAND REMOVED. PATIENT WAS DISCHARGE HOME WITH HOME HEALTH. BED WAS DELIVERED TO PATIENT HOME. PATIENT WAS TRANSPORTED HOME BY AN AMBULANCE SERVICE PROVIDED BY [facility] AND TWO vegetable scullion. PATIENT PICTURES WERE TAKEN AND PLACED IN THE CHART. SPOKE TO MACARENA MEJIA ON THE PHONE PRIOR TO DISCHARGE.
[2016-06-25] MEDS ORDERED: SULFAMETH/TRIMETH 800/160 MG 1 UDTAB TABLET PO SCH ×2 (21:00)
== END 2016-06-25 19:30 | disposition home health service (06) | DRG 193 ==
LOC: ER 12:22 → TELE 14:22 → MED 06-21 08:06 → TELE 06-21 08:06 → UNDODISIN 06-25 20:40
PROVIDERS: ADMIT Nurse Practitioner Acute Care; ATTEND Nurse Practitioner Acute Care
DX: J15.9 Unspecified bacterial pneumonia (principal); N18.6 End stage renal disease; I21.4 Non-ST elevation (NSTEMI) myocardial infarction; G92 Toxic encephalopathy; L89.894 Pressure ulcer of other site, stage 4; G93.1 Anoxic brain damage, not elsewhere classified; N39.0 Urinary tract infection, site not specified; I13.2 Hypertensive heart and chronic kidney disease with heart failure and with stage 5 chronic kidney disease, or end stage renal disease; L97.429 Non-pressure chronic ulcer of left heel and midfoot with unspecified severity; J98.11 Atelectasis; Z86.73 Personal history of transient ischemic attack (TIA), and cerebral infarction without residual deficits; I25.10 Atherosclerotic heart disease of native coronary artery without angina pectoris; E11.22 Type 2 diabetes mellitus with diabetic chronic kidney disease; L89.151 Pressure ulcer of sacral region, stage 1; Z99.2 Dependence on renal dialysis; E11.621 Type 2 diabetes mellitus with foot ulcer; J44.9 Chronic obstructive pulmonary disease, unspecified; Z86.74 Personal history of sudden cardiac arrest; F03.90 Unspecified dementia, unspecified severity, without behavioral disturbance, psychotic disturbance, mood disturbance, and anxiety; Z95.1 Presence of aortocoronary bypass graft; Z87.01 Personal history of pneumonia (recurrent); E78.5 Hyperlipidemia, unspecified; Z87.891 Personal history of nicotine dependence; D64.9 Anemia, unspecified; I50.9 Heart failure, unspecified; Z79.899 Other long term (current) drug therapy
CPT/HCPCS: 36415; 36600; 70450-TC; 71010-TC; 71250-TC; 76536-TC; 76705-TC; 80048-TC; 80053-TC; 80061-TC; 80076-TC; 81000-TC; 82140-TC; 82962-TC; 83605-TC; 83735-TC; 84100-TC; 84439-TC; 84443-TC; 84484-TC; 85025-TC; 85730-TC; 87040-TC; 87081-TC; 87086-TC; 90935-TC; 92611-TC; 93307-TC; 94799-TC; 97003-TC; A4216; A4606; A6248; A6402; J2543; J3370; J7060; P9047; Z7610